=== PATIENT | male | born 1985 | race African-American/Black ===

== ENCOUNTER 2016-11-22 22:44 | Emergency (ER) | payer SELFPAY ==
[~2016-11-22] VITALS: Ht 170.2 cm; Wt 68.8 kg
[2016-11-23] MEDS ORDERED: ZOFRAN ODT4 MG PO (00:10)
[2016-11-23 00:37] VITALS: BP 00/0
== END 2016-11-23 00:43 | disposition home or self-care (01) ==
LOC: EME 22:44
DX: K52.9 Noninfective gastroenteritis and colitis, unspecified (principal); Z72.0 Tobacco use
CPT/HCPCS: 99281; 99284